=== PATIENT | female | born 1995 | race Caucasian/White ===

== ENCOUNTER 2016-10-23 10:00 | Emergency (ER) | payer SELFPAY ==
[~2016-10-23] VITALS: Ht 160 cm; Wt 77.0 kg
[2016-10-23] MEDS ORDERED: PNV11TAB PO (10:27)
[2016-10-23 12:32] LABS: BASOPHILS # (AUTO) 0.09 K/uL (0.00-0.20); BASOPHILS % (AUTO) 1.3 % (0.0-2.0); EOSINOPHILS # (AUTO) 0.18 K/uL (0.00-0.70); HEMATOCRIT 47.5 % (36-46); HEMOGLOBIN 15.6 g/dL (12.0-16.0); LYMPHOCYTES % (AUTO) 27.5 % (22.0-44.0); MEAN CORPUSCULAR HEMOGLOBIN 29.2 pg (26.0-34.0); MEAN CORPUSCULAR HGB CONC 32.9 G/dL (31.0-37.0); MEAN CORPUSCULAR VOLUME 89 fL (80-100); MONOCYTES # (AUTO) 0.6 K/uL (0.1-1.0); MONOCYTES % (AUTO) 8.1 % (2.0-9.0); NEUTROPHILS # (AUTO) 4.5 K/uL (1.8-7.7); NEUTROPHILS % (AUTO) 60.7 % (40.0-70.0); PLATELET COUNT (AUTO) 180 K/uL (150-450); RED BLOOD CELL COUNT(AUTO) 5.36 MIL/uL (4.00-5.20); RED CELL DISTRIBUTION WIDTH 13.9 % (11.5-14.5); WHITE BLOOD COUNT (AUTO) 7.4 K/uL (4.5-11.0)
[2016-10-23 13:29] LABS: APPEARANCE,URINE CLEAR (CLEAR); GLUCOSE, URINE (UA) NEGATIVE (NEGATIVE); KETONES,URINE NEGATIVE (NEGATIVE); LEUKOCYTE ESTERASE ,URINE NEGATIVE (NEGATIVE); OCCULT BLOOD,URINE NEGATIVE (NEGATIVE); PH,URINE 6.5 (5.0-8.0); PROTEIN,URINE NEGATIVE (NEGATIVE)
[2016-10-23 13:32] VITALS: BP 114/73
[2016-10-23 13:32] LABS: ADD UA MICROSCOPIC NO
== END 2016-10-23 14:10 | disposition home or self-care (01) ==
LOC: EMS 10:03
DX: N91.2 Amenorrhea, unspecified (principal)
CPT/HCPCS: 99284

== ENCOUNTER 2025-06-06 23:43 | Emergency (ER) | payer OTHER ==
[~2025-06-06] VITALS: Ht 162.6 cm; Wt 65.9 kg
[~2025-06-06 23:43] MED LIST: PNV11TAB PO
[2025-06-07 00:11] LABS: COVID AG,FIA SOURCE NASAL SWAB
[2025-06-07 00:12] LABS: PLATELET COUNT (AUTO) 196 K/uL (150-450); RED BLOOD CELL COUNT(AUTO) 5.12 MIL/uL (4.00-5.20); RED CELL DISTRIBUTION WIDTH 12.9 % (11.5-14.5); WHITE BLOOD COUNT (AUTO) 11.1 K/uL (4.5-11.0)
[2025-06-07 00:21] LABS: CALCIUM, TOTAL 9.5 mg/dL (8.8-10.5); CREATININE 0.69 mg/dL (0.60-1.30); GLOMERULAR FILTR. RATE CALC > 60 mL/min (>60); GLUCOSE,RANDOM 130 mg/dL (70-110); SODIUM SERUM 141 mmol/L (136-145); UREA NITROGEN, BLOOD 10 mg/dL (7-18)
[2025-06-07] MEDS: SODIUM CHLORIDE 0.9% 1,000 ML IV ONE (00:32)
[2025-06-07] MEDS: ONDANSETRON HCL 4 MG/2 ML VIAL IVP ONE (00:32)
[2025-06-07 00:46] LABS: INFLUENZA TYPE A NEGATIVE FOR TYPE A (NEGATIVE); INFLUENZA TYPE B NEGATIVE FOR TYPE B (NEGATIVE)
[2025-06-07 00:47] LABS: SARS-COV2 (COVID) ANTIGEN,FIA Negative (Negative)
[2025-06-07 00:58] LABS: RAPID GROUP A STREP PRELIM. NEGATIVE (NEGATIVE)
[2025-06-07] MEDS: METOCLOPRAMIDE HCL 5 MG/ML 2 ML VIAL IVP ONE (02:02)
[2025-06-07 02:29] VITALS: BP 115/71; PULSE 75; RESP 16; O2SAT 97
== END 2025-06-07 04:14 | disposition home or self-care (01) ==
LOC: EMS 23:47
DX: K52.9 Noninfective gastroenteritis and colitis, unspecified (principal); R10.13 Epigastric pain; R11.2 Nausea with vomiting, unspecified; Z90.49 Acquired absence of other specified parts of digestive tract; Z79.899 Other long term (current) drug therapy; Z20.822 Contact with and (suspected) exposure to COVID-19
CPT/HCPCS: 99285; 87426; 80048; 84703; 85025; 87081; 87430; 87804; 36415; 96374; 76705; 96361; 96375; J2765; J2405; J7030